=== PATIENT | female | born 2000 | race African-American/Black ===

== ENCOUNTER 2025-01-24 21:10 | Emergency (ER) | payer MEDICAID ==
[~2025-01-24] VITALS: Ht 160 cm; Wt 62.8 kg
[2025-01-24 21:12] VITALS: O2SAT 100
[2025-01-25 00:24] LABS: CLARITY URINE CLEAR (CLEAR); COLOR URINE YELLOW (YELLOW); GLUCOSE URINE NEGATIVE (NEGATIVE); KETONES URINE TRACE (NEGATIVE); LEUKOCYTE ESTERASE URINE NEGATIVE (NEGATIVE); NITRITE URINE NEGATIVE (NEGATIVE); OCCULT BLOOD URINE NEGATIVE (NEGATIVE); PH URINE 6.0 (4.5-8.0); PROTEIN URINE 2+ (NEGATIVE); SPECIFIC GRAVITY URINE 1.018 (1.005-1.030); UROBILINOGEN URINE 0.2 E.U./dL (0.2-1.0)
[2025-01-25] MEDS: CEFTRIAXONE SODIUM 500MG VIAL IM ONE (00:30)
[2025-01-25] MEDS ORDERED: DOXY100C5 MT (00:34)
[2025-01-25 00:49] VITALS: BP 121/77; PULSE 68; RESP 20; TEMP 37.3; O2SAT 96
[2025-01-25 01:00] LABS: SQUAMOUS EPITHELIAL CELL URINE 1+ /lpf (RARE/1+)
[2025-01-25 01:01] LABS: RBC URINE 0-2 /hpf (0-2); WBC URINE 0-2 /hpf (0-2)
[2025-01-25 01:02] LABS: BACTERIA URINE NONE SEEN
[2025-01-26 15:10] LABS: CHLAMYDIA TRACHOMATIS NAA Negative (Negative); NEISSERIA GONORRHOEAE NAA Negative (Negative)
== END 2025-01-25 00:53 | disposition home or self-care (01) ==
LOC: ER 21:10
DX: Z11.3 Encounter for screening for infections with a predominantly sexual mode of transmission (principal); Z79.899 Other long term (current) drug therapy
CPT/HCPCS: 99283; 81025; 87491; 87591; 81003; 96372; J0696

== ENCOUNTER 2025-03-24 09:58 | Emergency (ER) | payer MEDICAID ==
[~2025-03-24] VITALS: Ht 160 cm; Wt 60.0 kg
[~2025-03-24 09:58] MED LIST: DOXY100C5 MT
[2025-03-24 10:09] VITALS: O2SAT 100
[2025-03-24 12:12] VITALS: BP 111/75; PULSE 75; RESP 18; TEMP 36.8; O2SAT 100
== END 2025-03-24 12:14 | disposition home or self-care (01) ==
LOC: ER 09:58
DX: Z34.01 Encounter for supervision of normal first pregnancy, first trimester (principal); Z3A.00 Weeks of gestation of pregnancy not specified
CPT/HCPCS: 81025; 99282

== ENCOUNTER 2025-03-28 11:35 | Emergency (ER) | payer MEDICAID ==
[~2025-03-28] VITALS: Ht 160 cm; Wt 60.0 kg
[2025-03-28 11:43] VITALS: O2SAT 99
[2025-03-28 14:59] VITALS: BP 111/69; PULSE 84; RESP 20; TEMP 36.9; O2SAT 99
== END 2025-03-28 15:00 | disposition home or self-care (01) ==
LOC: ER 11:35
DX: O26.891 Other specified pregnancy related conditions, first trimester (principal); Z3A.01 Less than 8 weeks gestation of pregnancy
CPT/HCPCS: 76801; 99284